=== PATIENT | female | born 2000 | race Two or more races ===

== ENCOUNTER 2021-03-12 13:27 | Outpatient (CLI) | payer OTHER ==
[~2021-03-12 13:27] MED LIST: ALBUTEROL17 G1 IH; ANTIPYRINE-BENZ15 ML OT; CLARITIN10 MG PO; DESPEC DM SYRU473 ML PO; PREDNISOLONE5 MG PO; ZITHROMAX500 MG PO
== END 2021-03-12 13:37 | disposition home or self-care (01) ==
LOC: RAD 13:27
PROVIDERS: ATTEND Physical Medicine & Rehabilitation Sports Medicine
DX: M54.5 Low back pain (principal)